=== PATIENT | male | born 1975 | race Caucasian/White ===

== ENCOUNTER → 2024-10-27 13:38 | Outpatient (REF) | payer BC, SELFPAY | LOC: HWRAD 13:38 | PROVIDERS: ATTENDING PHYSICIAN Chiropractor; FAMILY PHYSICIAN Family Medicine | DX: M53.2X7 Spinal instabilities, lumbosacral region (principal); R10.2 Pelvic and perineal pain | CPT/HCPCS: 72110; 72170 ==